=== PATIENT | male | born 1955 | race Caucasian/White ===

== ENCOUNTER 2018-05-18 16:18 | Emergency (ER) | payer MEDICARE, MEDICAID ==
[~2018-05-18] VITALS: Ht 177.8 cm; Wt 77.3 kg
[~2018-05-18 16:18] MED LIST: ADDE10 PO; ALBU8HFA IH; ALPR1TAB7 PO; CARI350 PO; DULO20CA30 PO; LISI-660 PO; OXYC10IR PO; OXYCODONE; SIMV-259 PO; TAMS0.4C32 PO
[2018-05-18] MEDS ORDERED: METH10 PO (16:41)
[2018-05-18] MEDS ORDERED: LISINOPRIL 10 MG TABLET PO ONE (19:15)
[2018-05-18 19:29] LABS: EOSINOPHILS % (AUTO) 2.1 % (1.0-6.0); HEMATOCRIT 37.4 % (41-53); HEMOGLOBIN 13.3 g/dL (13.5-17.5); LYMPHOCYTES # (AUTO) 1.1 K/uL (1.0-4.8); LYMPHOCYTES % (AUTO) 23.2 % (22.0-44.0); MEAN CORPUSCULAR HEMOGLOBIN 30.5 pg (26.0-34.0); MEAN CORPUSCULAR HGB CONC 35.5 G/dL (31.0-37.0); MEAN CORPUSCULAR VOLUME 86 fL (80-100); MONOCYTES # (AUTO) 0.5 K/uL (0.1-1.0); MONOCYTES % (AUTO) 9.5 % (2.0-9.0); NEUTROPHILS # (AUTO) 3.1 K/uL (1.8-7.7); NEUTROPHILS % (AUTO) 64.2 % (40.0-70.0); PLATELET COUNT (AUTO) 281 K/uL (150-450); RED BLOOD CELL COUNT(AUTO) 4.35 MIL/uL (4.50-5.90); RED CELL DISTRIBUTION WIDTH 12.1 % (11.5-14.5)
[2018-05-18 19:42] LABS: ANION GAP 6 mmol/L (8-16); CALCIUM, TOTAL 8.8 mg/dL (8.8-10.5); CARBON DIOXIDE 31 mmol/L (22-29); CHLORIDE 102 mmol/L (98-107); CREATININE 0.89 mg/dL (0.60-1.30); GLOMERULAR FILTR. RATE CALC > 60 mL/min (>60); GLUCOSE,RANDOM 84 mg/dL (70-110); SODIUM SERUM 139 mmol/L (136-145); UREA NITROGEN, BLOOD 16 mg/dL (7-18)
[2018-05-18 19:53] LABS: ALANINE AMINOTRANSFERASE 34 U/L (12-78); ALBUMIN 3.5 g/dL (3.4-5.0); ALKALINE PHOSPHATASE 78 U/L (46-116); ASPARTATE AMINOTRANSFERASE 28 U/L (15-37); BILIRUBIN,TOTAL 0.3 mg/dL (0.1-1.0); TOTAL PROTEIN, SERUM 6.8 g/dL (6.4-8.2)
[2018-05-18 20:22] LABS: AMPHET/METH SCREEN,URINE POSITIVE (NEGATIVE); BARBITURATE SCREEN, URINE NEGATIVE (NEGATIVE); BENZODIAZEPINES SCREEN,URINE NEGATIVE (NEGATIVE); CANNABINOID SCREEN,URINE NEGATIVE (NEGATIVE); COCAINE SCREEN,URINE NEGATIVE (NEGATIVE); METHADONE SCREEN, URINE POSITIVE (NEGATIVE); OPIATE SCREEN,URINE POSITIVE (NEGATIVE)
[2018-05-18 20:23] LABS: PHENCYCLIDINE SCREEN,URINE NEGATIVE (NEGATIVE)
[2018-05-18 20:40] VITALS: BP 189/111
== END 2018-05-18 21:05 | disposition left against medical advice (07) ==
LOC: EMS 16:18
DX: F11.20 Opioid dependence, uncomplicated (principal); I10 Essential (primary) hypertension; E78.00 Pure hypercholesterolemia, unspecified; F41.9 Anxiety disorder, unspecified
CPT/HCPCS: 36415; 80053; 80307; 84484; 85025; 99285; G0480

== ENCOUNTER 2024-04-01 19:50 | Emergency (ER) | payer MEDICARE, OTHER ==
[~2024-04-01] VITALS: Ht 177.8 cm; Wt 68.2 kg
[~2024-04-01 19:50] MED LIST changes: -ADDE10 PO; -ALBU8HFA IH; -ALPR1TAB7 PO; -CARI350 PO; -DULO20CA30 PO; -LISI-660 PO; +LISI-892 PO; +METH10 PO; -OXYC10IR PO; -OXYCODONE; -SIMV-259 PO; -TAMS0.4C32 PO; +TAMS0.4C94 PO
[2024-04-01 20:24] VITALS: TEMP 98.3
[2024-04-01] MEDS ORDERED: ALPR2TAB7 PO (20:45)
[2024-04-01] MEDS ORDERED: AMPH30TA3 PO (20:45)
[2024-04-01] MEDS ORDERED: FLUO-418 PO (20:45)
[2024-04-01 21:55] VITALS: BP 124/57; PULSE 66; RESP 18; O2SAT 100
[2024-04-01] MEDS: METHADONE HCL 10 MG/5 ML SOLUTION ORAL.SYG PO ONE (23:09)
== END 2024-04-02 | disposition home or self-care (01) ==
LOC: EMS 19:50
DX: F11.20 Opioid dependence, uncomplicated (principal); F41.9 Anxiety disorder, unspecified; E78.00 Pure hypercholesterolemia, unspecified; I10 Essential (primary) hypertension; G89.29 Other chronic pain; M54.9 Dorsalgia, unspecified; N40.0 Benign prostatic hyperplasia without lower urinary tract symptoms
CPT/HCPCS: 99283

== ENCOUNTER 2024-04-08 12:25 | Emergency (ER) | payer MEDICARE, OTHER ==
[~2024-04-08] VITALS: Ht 175.3 cm; Wt 68.2 kg
[~2024-04-08 12:25] MED LIST changes: +ALPR2TAB7 PO; +AMPH30TA3 PO; +FLUO-418 PO
[2024-04-08 12:34] VITALS: TEMP 98.5
[2024-04-08 14:30] VITALS: BP 133/63; PULSE 72; RESP 18; O2SAT 95
[2024-04-08] MEDS: METHADONE HCL 10 MG/5 ML SOLUTION ORAL.SYG PO ONE (16:11)
== END 2024-04-08 16:27 | disposition home or self-care (01) ==
LOC: EMS 12:25
DX: G89.29 Other chronic pain (principal); M54.50 Low back pain, unspecified; I10 Essential (primary) hypertension; F41.9 Anxiety disorder, unspecified; E78.00 Pure hypercholesterolemia, unspecified; Z79.899 Other long term (current) drug therapy
CPT/HCPCS: 99283

== ENCOUNTER 2024-05-20 00:36 | Emergency (ER) | payer MEDICARE, OTHER ==
[~2024-05-20] VITALS: Ht 177.8 cm; Wt 65.9 kg
[2024-05-20 01:01] VITALS: BP 135/72; PULSE 70; RESP 18; TEMP 98.6; O2SAT 94
[2024-05-20] MEDS: METHADONE HCL 10 MG TABLET PO ONE (04:54)
== END 2024-05-20 06:07 | disposition home or self-care (01) ==
LOC: EMS 00:39
DX: S20.219A Contusion of unspecified front wall of thorax, initial encounter (principal); F41.9 Anxiety disorder, unspecified; E78.00 Pure hypercholesterolemia, unspecified; I10 Essential (primary) hypertension; N40.0 Benign prostatic hyperplasia without lower urinary tract symptoms; Z76.0 Encounter for issue of repeat prescription; Z79.899 Other long term (current) drug therapy; V43.52XA Car driver injured in collision with other type car in traffic accident, initial encounter; Y93.89 Activity, other specified; Y92.410 Unspecified street and highway as the place of occurrence of the external cause; Y99.8 Other external cause status
CPT/HCPCS: 71045; 99283

== ENCOUNTER 2024-05-24 23:44 | Emergency (ER) | payer MEDICARE, OTHER ==
[~2024-05-24] VITALS: Ht 177.8 cm; Wt 65.9 kg
[2024-05-24 23:54] VITALS: BP 155/115; PULSE 95; RESP 18; TEMP 97.9; O2SAT 98
[2024-05-25] MEDS ORDERED: METHADONE HCL 10 MG TABLET PO ONE (02:30)
[2024-05-25] MEDS: METHADONE HCL 10 MG TABLET PO ONE (02:52)
== END 2024-05-25 02:59 | disposition home or self-care (01) ==
LOC: EMS 23:45
DX: F11.20 Opioid dependence, uncomplicated (principal); I10 Essential (primary) hypertension; E78.00 Pure hypercholesterolemia, unspecified; F41.9 Anxiety disorder, unspecified; Z79.899 Other long term (current) drug therapy
CPT/HCPCS: 99283

== ENCOUNTER 2024-05-26 04:20 | Emergency (ER) | payer MEDICARE, OTHER ==
[~2024-05-26] VITALS: Ht 180.3 cm; Wt 75.0 kg
[2024-05-26 04:39] VITALS: TEMP 98.2
[2024-05-26 04:54] VITALS: BP 152/91; PULSE 76; RESP 17; O2SAT 95
[2024-05-26 04:55] LABS: BASOPHILS % (AUTO) 0.2 % (0.0-2.0); EOSINOPHILS % (AUTO) 0.9 % (1.0-6.0); HEMATOCRIT 43.6 % (41-53); LYMPHOCYTES # (AUTO) 0.3 K/uL (1.0-4.8); LYMPHOCYTES % (AUTO) 1.9 % (22.0-44.0); MEAN CORPUSCULAR HEMOGLOBIN 31.1 pg (26.0-34.0); MEAN CORPUSCULAR HGB CONC 34.3 G/dL (31.0-37.0); MEAN CORPUSCULAR VOLUME 91 fL (80-100); MONOCYTES # (AUTO) 0.9 K/uL (0.1-1.0); MONOCYTES % (AUTO) 5.3 % (2.0-9.0); NEUTROPHILS # (AUTO) 16.4 K/uL (1.8-7.7); PLATELET COUNT (AUTO) 355 K/uL (150-450); RED BLOOD CELL COUNT(AUTO) 4.81 MIL/uL (4.50-5.90); RED CELL DISTRIBUTION WIDTH 12.9 % (11.5-14.5); WHITE BLOOD COUNT (AUTO) 17.8 K/uL (4.5-11.0)
[2024-05-26] MEDS ORDERED: LORazepam 2 MG/ML VIAL IVP ONE (05:00)
[2024-05-26 05:03] LABS: ANION GAP 9 mmol/L (8-16); CALCIUM, TOTAL 8.4 mg/dL (8.8-10.5); CARBON DIOXIDE 26 mmol/L (22-29); CHLORIDE 98 mmol/L (98-107); CREATININE 1.11 mg/dL (0.60-1.30); GLOMERULAR FILTR. RATE CALC > 60 mL/min (>60); GLUCOSE,RANDOM 109 mg/dL (70-110); POTASSIUM 3.1 mmol/L (3.5-5.1); SODIUM SERUM 133 mmol/L (136-145); UREA NITROGEN, BLOOD 15 mg/dL (7-18)
[2024-05-26 05:07] LABS: NEUTROPHILS % (AUTO) 91.7 % (40.0-70.0)
[2024-05-26 05:12] LABS: LACTIC ACID 1.7 mmol/L (0.4-2.0); TROPONIN I-HIGH SENSITIVITY 22 ng/L (<76)
[2024-05-26 05:14] LABS: ALANINE AMINOTRANSFERASE 25 U/L (12-78); ALBUMIN 2.9 g/dL (3.4-5.0); ALKALINE PHOSPHATASE 119 U/L (46-116); ASPARTATE AMINOTRANSFERASE 27 U/L (15-37); BILIRUBIN,TOTAL 0.3 mg/dL (0.1-1.0); LIPASE 12 U/L (16-77); TOTAL PROTEIN, SERUM 7.1 g/dL (6.4-8.2)
[2024-05-26 05:18] LABS: ALCOHOL, BLOOD (SERUM) < 3 mg/dL (0-10)
[2024-05-26] MEDS: SODIUM CHLORIDE 0.9% 1,000 ML IV ONE (05:19)
[2024-05-26] MEDS: IBUPROFEN 600 MG TABLET PO ONE (05:19)
[2024-05-26] MEDS: CloNIDine HCL 0.1 MG TABLET PO ONE (05:19)
[2024-05-26] MEDS: ONDANSETRON HCL 4 MG/2 ML VIAL IVP ONE (05:19)
[2024-05-26] MEDS: LORazepam 2 MG/ML VIAL IVP ONE (05:19)
== END 2024-05-26 06:25 | disposition left against medical advice (07) ==
LOC: EMS 04:21
DX: F11.23 Opioid dependence with withdrawal (principal); F41.9 Anxiety disorder, unspecified; E78.00 Pure hypercholesterolemia, unspecified; I10 Essential (primary) hypertension; G89.29 Other chronic pain; M54.6 Pain in thoracic spine; N40.0 Benign prostatic hyperplasia without lower urinary tract symptoms; Z79.899 Other long term (current) drug therapy
CPT/HCPCS: 99284; 96374; 96361; 96375; 80048; 80076; 83605; 83690; 84484; 85025; 36415; 93005; G0480; J2060; J2405; J7030